=== PATIENT | male | born 1970 | race Caucasian/White ===

== ENCOUNTER → 2022-10-24 14:30 | Outpatient (CLI) | payer BC, SELFPAY ==
--- NOTE | ~2022-10-24 | XR_ITS ---
[id number] DATE: 10/24/2022 14:56 INDICATION: Posterior left rib pain for one month TECHNIQUE: PA chest. COMPARISON: None FINDINGS: No recent left rib fracture is detected. No bone destruction is noted. Normal heart size. No hilar or mediastinal enlargement. No pulmonary infiltrate or consolidation, ple ural effusion or pulmonary vascular congestion or pneumothorax is detected. Right clavicular plate and screws. IMPRESSION: No recent left rib fracture is detected Reviewed, dictated and finalized at [facility]. Reviewed, dictated and finalized at [facility].
== END ==
PROVIDERS: PCP Internal Medicine; Visit Provider Chiropractor
DX: M99.08 Segmental and somatic dysfunction of rib cage (principal); G58.0 Intercostal neuropathy
CPT/HCPCS: 71101